=== PATIENT | male | born 1950 | race Caucasian/White ===

== ENCOUNTER 2020-05-05 07:05 | Outpatient (REF) | payer MEDICARE, OTHER, SELFPAY | END 2020-05-05 07:06 | disposition home or self-care (01) | LOC: HO.WFDLDS 07:05 | PROVIDERS: Visit Provider Internal Medicine | DX: Z20.828 Contact with and (suspected) exposure to other viral communicable diseases (principal) | CPT/HCPCS: U0003 ==

== ENCOUNTER 2021-11-27 12:05 | Outpatient (REF) | payer MEDICARE, OTHER, SELFPAY ==
--- NOTE | 2021-12-18 12:12 | MHC.AU.ANO ---
Adult Audiological Evaluation Date of Visit: 11/27/21 Chief Port Director Used: Not Applicable Reason for Appointment: Referred for audiologic evaluation due to decreased hearing ability, right ear greater than left, and tinnitus. Jesus Alberto reports he has been using Debrox ear drops as his PCP recommended; however, hearing problem and blocked sensation is even worse. He is in the process of working with the [employer] [facility] due to the tinnitus, hearing loss, ear pressure, and his past exposure to [place]. Does patient feel they have a hearing loss?: Yes If Yes, Which Ear?: Right Ear Hearing Handicap Inventory: HHIE SCORE: 18 Based on HHIE score, patient has: Mild to moderate perceived hearing handicap Ear History: History of Ear Wax Buildup: Both Ears Bothersome Tinnitus/Ringing/Noises in Ears: Both Ears Ear used on the phone: Right Ear History of occupational noise exposure?: Yes History: Yes Medical History: Medical History: Diabetes, Heart Problems Medical History: Pacemaker placed in November 2020 Medication List: Glucophage, Humilog, Lantus, Trulicity, Prilosec, Aspirin, as well as high blood pressure and high cholesterol medications Otoscopy: Right Ear: Mostly occluding cerumen. Able to remove most prior to testing today Left Ear: Completely occluding cerumen. Removed significant amount, but deep cerumen continues to occlude the ear canal. Tympanometry: Tympanometry performed due to: To assess integrity of the middle ear system Right Ear: Normal Middle Ear System (Type A) Left Ear: Non-compliant Middle Ear System (Type B) Otoacoustic Emissions Did Not Test due to cerumen Hearing Evaluation: Transducer(s) Used: Circumaural Headphones Bone Conduction Method: Conventional Audiometry Stimuli Used: Pure Tones Right Ear: Description of Hearing: Normal hearing thresholds through all frequencies with the exception of a mild sensorineural hearing loss at 1170-4505 Hz Left Ear: Description of Hearing: Moderate to moderately-severe mixed hearing loss through all frequencies Speech Recognition Threshold (SRT): Method Used: Monitored Live Voice Stimuli Used: Spondee Words Right Ear: 15 dB HL Left Ear: 40 dB HL Word Discrimination: Method: Recorded Lists Word Lists Used: NU-6 Right Ear: 100% at 55 dB HL Left Ear: 100% at 85 dB HL Interpretation of Results: The significant conductive hearing loss and middle ear dysfunction for the left ear are likely related to the continued occluding cerumen deep in the ear canal. Recommendations: - 6 week re-evaluation and further attempt to suction remaining cerumen is scheduled for 01/07/2022 after Jesus Alberto uses the Ear Wax MD drops as directed on the instructions. - If unable to remove more cerumen or hearing loss continues, will advise medical consultation with an Ear, Nose, and Throat specialist. Diagnosis: Primary Diagnosis: H61.23 Impacted Cerumen, Bilateral Secondary Diagnosis: H90.A32 Mixed HL, Unilateral, Left Ear, W/Restricted Contralateral Services Performed: Comprehensive Audiological Evaluation (CPT 64967) Tympanometry (CPT 00856) Signature: Provider: Flako Schwartz, CCC-A
== END 2021-11-27 12:06 | disposition home or self-care (01) ==
LOC: HO.SH 12:05
PROVIDERS: Visit Provider Pediatrics
DX: Z01.118 Encounter for examination of ears and hearing with other abnormal findings (principal); H61.23 Impacted cerumen, bilateral; H90.A22 Sensorineural hearing loss, unilateral, left ear, with restricted hearing on the contralateral side
CPT/HCPCS: 92557; 92567

== ENCOUNTER 2021-11-27 12:35 | Outpatient (REF) | payer SELFPAY | END 2021-11-27 12:36 | disposition home or self-care (01) | LOC: HO.HAP 12:35 | PROVIDERS: Visit Provider Pediatrics | DX: Z46.1 Encounter for fitting and adjustment of hearing aid (principal); H61.23 Impacted cerumen, bilateral | CPT/HCPCS: 92700 ==